=== PATIENT | male | born 2005 | race African-American/Black ===

== ENCOUNTER 2025-01-16 13:03 | Emergency (ER) | payer SELFPAY ==
[~2025-01-16] VITALS: Ht 177.8 cm; Wt 84.1 kg
[2025-01-16 13:17] VITALS: TEMP 99.3
[2025-01-16 13:33] LABS: COVID AG,FIA SOURCE NASAL SWAB
[2025-01-16] MEDS: ACETAMINOPHEN 500 MG TABLET PO ONE (13:54)
[2025-01-16] MEDS: IBUPROFEN 600 MG TABLET PO ONE (13:54)
[2025-01-16] MEDS: GuaiFENesin/D-METHORPHAN [SUGAR-FREE] 200-20MG/10 ML SYRUP UDCUP PO ONE (13:54)
[2025-01-16 14:15] VITALS: BP 123/78; PULSE 97; RESP 19; O2SAT 100
[2025-01-16 14:23] LABS: INFLUENZA TYPE A NEGATIVE FOR TYPE A (NEGATIVE); INFLUENZA TYPE B NEGATIVE FOR TYPE B (NEGATIVE); SARS-COV2 (COVID) ANTIGEN,FIA Negative (Negative)
[2025-01-16 14:25] LABS: RAPID GROUP A STREP PRELIM. NEGATIVE (NEGATIVE)
[2025-01-16] MEDS ORDERED: GUAIFDM PO (14:29)
[2025-01-16] MEDS ORDERED: ACET-66 PO (14:29)
[2025-01-16] MEDS ORDERED: CEPH-558 PO (14:29)
[2025-01-16] MEDS ORDERED: IBUP-1554 PO (14:29)
== END 2025-01-16 14:47 | disposition home or self-care (01) ==
LOC: EMS 13:03
DX: J02.9 Acute pharyngitis, unspecified (principal); J06.9 Acute upper respiratory infection, unspecified; Z20.822 Contact with and (suspected) exposure to COVID-19
CPT/HCPCS: 87081; 87430; 87804; 99284; Z7502; Z7610